=== PATIENT | female | born 1955 | race Caucasian/White ===

== ENCOUNTER 2018-06-11 13:33 | Emergency (ER) | payer MEDICARE, MEDICAID ==
[~2018-06-11] VITALS: Ht 157.5 cm; Wt 50.0 kg
[~2018-06-11 13:33] MED LIST: ASPI-1264 PO; BUSP5TAB3 PO; CEPH-357 PO; DEXL60CA3 PO; DULO-31 PO; GABA-338 PO; HYDR-4353 PO; HYDR-4383 PO; LISI-600 PO; LORA1TAB PO; META800T87 PO; METO-539 PO; NIA500ERT PO; NORCO10T PO; SIMV10TA2 PO; SOLI10TA6 PO
[2018-06-11 14:17] VITALS: BP 198/113
--- NOTE | 2018-06-11 14:35 | NUR ---
INTO ASSESS PT. PT NOTED TO HAVE BP OF 193/119 AND RECHECK 198/113. UPON QUESTIONING PT SHE STATES SHE HAS NOT TAKEN ANY OF HER MEDS FOR OVER [address] BORGES NOTIFIED NO ORDERS AT THIS TIME
== END 2018-06-11 15:34 | disposition home or self-care (01) ==
LOC: ER 13:35
DX: H54.7 Unspecified visual loss (principal); I10 Essential (primary) hypertension; E78.00 Pure hypercholesterolemia, unspecified; G89.29 Other chronic pain; F41.9 Anxiety disorder, unspecified; F32.9 Major depressive disorder, single episode, unspecified; M19.90 Unspecified osteoarthritis, unspecified site; F17.200 Nicotine dependence, unspecified, uncomplicated; Z88.5 Allergy status to narcotic agent; Z88.8 Allergy status to other drugs, medicaments and biological substances; Z79.899 Other long term (current) drug therapy; Z79.82 Long term (current) use of aspirin; Z86.73 Personal history of transient ischemic attack (TIA), and cerebral infarction without residual deficits; Z90.89 Acquired absence of other organs
CPT/HCPCS: 99281; 99283

== ENCOUNTER 2019-04-15 10:13 | Emergency (ER) | payer MEDICARE, MEDICAID ==
[~2019-04-15] VITALS: Ht 157.5 cm; Wt 50.3 kg
[2019-04-15 10:26] VITALS: BP 152/103
--- NOTE | 2019-04-15 10:46 | NUR ---
clarissae to dry blood areas on face, to view abrasions. Pt is tearful, reports no pmd and out of her [address] [facility]. Pt denies SI.
--- NOTE | 2019-04-15 10:46 | NUR ---
PT states that she has depression issues and is out of medication.
[2019-04-15] MEDS ORDERED: HYDROcodone/acetaminophen 5mg/325mg tablet PO ONE (11:20)
[2019-04-15] MEDS ORDERED: ondansetron 4mg rapidly disintigrating tab PO ONE (11:20)
--- NOTE | 2019-04-15 11:50 | NUR ---
IN CT NOW
--- NOTE | 2019-04-15 12:03 | NUR ---
BACK FROM CT
--- NOTE | 2019-04-15 12:30 | NUR ---
CALLED PT "" JEFF [phone], HE WILL COME AND GET HER
== END 2019-04-15 13:43 | disposition home or self-care (01) ==
LOC: ER 10:14
DX: S16.1XXA Strain of muscle, fascia and tendon at neck level, initial encounter (principal); S00.31XA Abrasion of nose, initial encounter; E78.00 Pure hypercholesterolemia, unspecified; I10 Essential (primary) hypertension; M19.90 Unspecified osteoarthritis, unspecified site; G89.29 Other chronic pain; F41.9 Anxiety disorder, unspecified; F32.9 Major depressive disorder, single episode, unspecified; Z86.73 Personal history of transient ischemic attack (TIA), and cerebral infarction without residual deficits; Z98.890 Other specified postprocedural states; Z88.5 Allergy status to narcotic agent; Z88.8 Allergy status to other drugs, medicaments and biological substances; Z79.82 Long term (current) use of aspirin; Z79.2 Long term (current) use of antibiotics; Z79.899 Other long term (current) drug therapy; W01.10XA Fall on same level from slipping, tripping and stumbling with subsequent striking against unspecified object, initial encounter; Y93.89 Activity, other specified; Y92.89 Other specified places as the place of occurrence of the external cause; Y99.8 Other external cause status
CPT/HCPCS: 70450; 72125; 99284

== ENCOUNTER 2019-05-04 09:40 | Emergency (ER) | payer MEDICARE, MEDICAID ==
[~2019-05-04] VITALS: Ht 157.5 cm; Wt 49.0 kg
[2019-05-04] MEDS ORDERED: LABETALOL IV PRN ×3 (10:25→10:33)
[2019-05-04] MEDS ORDERED: NORMAL SALINE IV PRN ×3 (10:25→10:33)
[2019-05-04 10:47] LABS: BASOPHILS # (AUTO) 0.1 X10'3 (0-0.2); BASOPHILS % (AUTO) 0.9 % (0-1); EOSINOPHILS # (AUTO) 0.3 X10'3 (0-0.9); EOSINOPHILS % (AUTO) 3.6 % (0-6); HEMATOCRIT 45.6 % (35.0-45.0); HEMOGLOBIN 15.7 g/dl (12.0-16.0); LYMPHOCYTES # (AUTO) 2.2 X10'3 (1.1-4.8); LYMPHOCYTES % (AUTO) 22.9 % (21-51); MEAN CORPUSCULAR HEMOGLOBIN 31.8 PG (27.0-31.0); MEAN CORPUSCULAR HGB CONC 34.4 g/dL (33.0-36.5); MEAN CORPUSCULAR VOLUME 92.5 FL (78-98); MONOCYTES # (AUTO) 0.9 X10'3 (0-0.9); MONOCYTES % (AUTO) 9.8 % (2-12); NEUTROPHILS # (AUTO) 5.9 X10'3 (1.8-7.7); NEUTROPHILS % (AUTO) 62.8 % (42-75); PLATELET COUNT 318 X10'3 (140-440); RED BLOOD COUNT 4.93 X10'6 (4.20-5.60); RED CELL DISTRIBUTION WIDTH 13.3 % (11.5-14.5); WHITE BLOOD COUNT 9.4 X10'3 (4.5-11.0)
[2019-05-04 11:00] LABS: PARTIAL THROMBOPLASTIN TIME 27 SECONDS (22-32)
[2019-05-04 11:23] LABS: ALANINE AMINOTRANSFERASE 47 U/L (12-78); ALBUMIN 3.7 G/DL (3.4-5.0); ALBUMIN/GLOBULIN RATIO 0.7 (1.1-1.5); ALKALINE PHOSPHATASE 91 IU/L (46-116); ANION GAP 7 (8-16); ASPARTATE AMINO TRANSFERASE 39 U/L (10-37); BILIRUBIN,TOTAL 0.6 MG/DL (0.1-1.0); BLOOD UREA NITROGEN 25 MG/DL (7-18); CALCIUM 9.7 MG/DL (8.5-10.1); CHLORIDE 98 MMOL/L (99-107); CREATININE 1.19 MG/DL (0.40-0.90); GLUCOSE 163 MG/DL (70-104); SODIUM 138 MMOL/L (135-145); TOTAL CARBON DIOXIDE 33.1 MMOL/L (24-32); TOTAL PROTEIN 8.8 G/DL (6.4-8.2); eGFR 46 ML/MIN
--- NOTE | 2019-05-04 11:24 | NUR ---
CAME IN TO THE ER BECAUSE SHE FELL LAST NIGHT AND CAME IN TO BE EVALUATED CT WAS DONE AND A BLEED WAS FOUND AND IS BEING SENT TO [facility] TO BE TREATED
[2019-05-04 11:27] LABS: POTASSIUM 2.9 MMOL/L (3.5-5.1)
--- NOTE | 2019-05-04 11:30 | NUR ---
EMS LEFT WITH PT REPORT WAS GIVEN ALL QUESTIONS ANSWERED
[2019-05-04 11:42] VITALS: BP 157/98
[2019-05-04 11:54] LABS: URINE AMPHETAMINE SCREEN POSITIVE (Neg); URINE BARBITUATE SCREEN NEGATIVE (Neg); URINE BENZODIAZEPINES SCREEN NEGATIVE (Neg); URINE CANNABINOID SCREEN POSITIVE (Neg); URINE COCAINE SCREEN NEGATIVE (Neg); URINE METHADONE SCREEN NEGATIVE (Neg); URINE OPIATE SCREEN NEGATIVE (Neg); URINE PHENCYCLIDINE SCREEN NEGATIVE (Neg)
== END 2019-05-04 11:46 | disposition short-term general hospital (02) ==
LOC: ER 09:40
DX: I62.9 Nontraumatic intracranial hemorrhage, unspecified (principal); I10 Essential (primary) hypertension; I25.10 Atherosclerotic heart disease of native coronary artery without angina pectoris; E78.00 Pure hypercholesterolemia, unspecified; K21.9 Gastro-esophageal reflux disease without esophagitis; M19.90 Unspecified osteoarthritis, unspecified site; G89.29 Other chronic pain; F17.200 Nicotine dependence, unspecified, uncomplicated; F12.90 Cannabis use, unspecified, uncomplicated; Z86.73 Personal history of transient ischemic attack (TIA), and cerebral infarction without residual deficits; Z98.890 Other specified postprocedural states; Z90.89 Acquired absence of other organs; Z88.5 Allergy status to narcotic agent; Z79.82 Long term (current) use of aspirin; Z79.899 Other long term (current) drug therapy
CPT/HCPCS: 36415; 70450; 71045; 80053; 80305; 83880; 84484; 85025; 85610; 85730; 93005; 96365; 99291; J3490; J7050

== ENCOUNTER 2020-07-19 19:07 | Emergency (ER) | payer MEDICARE, MEDICAID ==
[~2020-07-19] VITALS: Ht 157.5 cm; Wt 52.3 kg
[2020-07-19] MEDS ORDERED: AZIT250T2 PO (19:50)
[2020-07-19] MEDS ORDERED: ALBU6.7H9 INH (19:50)
[2020-07-19] MEDS ORDERED: PRED10TA23 PO (19:50)
== END 2020-07-19 20:09 | disposition home or self-care (01) ==
LOC: ER 19:07
DX: R06.2 Wheezing (principal); J44.9 Chronic obstructive pulmonary disease, unspecified; R05 Cough; R50.9 Fever, unspecified; R06.02 Shortness of breath; Z20.822 Contact with and (suspected) exposure to COVID-19; I25.10 Atherosclerotic heart disease of native coronary artery without angina pectoris; E78.00 Pure hypercholesterolemia, unspecified; I10 Essential (primary) hypertension; K21.9 Gastro-esophageal reflux disease without esophagitis; M19.90 Unspecified osteoarthritis, unspecified site; G89.29 Other chronic pain; F41.9 Anxiety disorder, unspecified; F32.9 Major depressive disorder, single episode, unspecified; F12.90 Cannabis use, unspecified, uncomplicated; Z86.73 Personal history of transient ischemic attack (TIA), and cerebral infarction without residual deficits; Z87.440 Personal history of urinary (tract) infections; Z98.890 Other specified postprocedural states; Z90.89 Acquired absence of other organs; Z88.5 Allergy status to narcotic agent; Z88.8 Allergy status to other drugs, medicaments and biological substances; Z79.82 Long term (current) use of aspirin; Z79.2 Long term (current) use of antibiotics; Z79.899 Other long term (current) drug therapy
CPT/HCPCS: 36415; 87635; 99283

== ENCOUNTER 2021-10-07 23:45 | Emergency (ER) | payer MEDICARE, MEDICAID ==
[~2021-10-07] VITALS: Ht 157.5 cm; Wt 52.7 kg
[~2021-10-07 23:45] MED LIST changes: +ALBU6.7H9 INH; -LISI-600 PO; +LISI20TA28 PO
[2021-10-08 00:01] VITALS: BP 156/100
[2021-10-08] MEDS ORDERED: NAPR-56 PO (03:46)
== END 2021-10-08 04:14 | disposition home or self-care (01) ==
LOC: ER 23:46
DX: S03.03XA Dislocation of jaw, bilateral, initial encounter (principal); I25.10 Atherosclerotic heart disease of native coronary artery without angina pectoris; E78.00 Pure hypercholesterolemia, unspecified; I10 Essential (primary) hypertension; K21.9 Gastro-esophageal reflux disease without esophagitis; M19.90 Unspecified osteoarthritis, unspecified site; F12.90 Cannabis use, unspecified, uncomplicated; Z87.440 Personal history of urinary (tract) infections; Z86.73 Personal history of transient ischemic attack (TIA), and cerebral infarction without residual deficits; Z98.891 History of uterine scar from previous surgery; Z90.89 Acquired absence of other organs; Z88.8 Allergy status to other drugs, medicaments and biological substances; Z79.82 Long term (current) use of aspirin; Z79.2 Long term (current) use of antibiotics; Z79.899 Other long term (current) drug therapy; X58.XXXA Exposure to other specified factors, initial encounter; Y93.89 Activity, other specified; Y92.89 Other specified places as the place of occurrence of the external cause; Y99.8 Other external cause status
CPT/HCPCS: 70486; 99284

== ENCOUNTER 2021-11-12 19:56 | Emergency (ER) | payer MEDICARE, MEDICAID ==
[~2021-11-12] VITALS: Ht 157.5 cm; Wt 115.0 kg
[2021-11-12 20:05] VITALS: BP 184/118
[2021-11-12 20:59] LABS: CLARITY,URINE SLIGHTLY CLOUDY (Clear); COLOR,URINE YELLOW (Yellow); GLUCOSE, URINE NEGATIVE (Neg); KETONES,URINE NEGATIVE (Neg); LEUKOCYTE ESTERASE ,URINE NEGATIVE (Neg); NITRITES, URINE NEGATIVE (Neg); OCCULT BLOOD,URINE TRACE-INTACT (Neg); PROTEIN,URINE >=300 mg/dl (Neg); UROBILINOGEN,URINE 0.2 E.U/dL (0.2-1.0)
[2021-11-12 21:12] LABS: UA COLLECTION TYPE CLN CATCH MIDSTREAM
[2021-11-12 21:15] LABS: BACTERIA,URINE 4+ /HPF (Neg); MUCUS STRANDS NONE SEEN /LPF (Neg); RBC,URINE 0-2 /HPF (0-2); SQUAMOUS EPITHELIAL CELL,UR FEW /LPF (FEW)
[2021-11-12 21:16] LABS: WBC CLUMPS,URINE FEW /HPF (NEGATIVE)
[2021-11-12] MEDS ORDERED: cephalexin 250mg capsule PO ONE (21:50)
[2021-11-12] MEDS ORDERED: CEPH500C2 PO (22:18)
== END 2021-11-12 22:39 | disposition home or self-care (01) ==
LOC: ER 19:57
DX: N39.0 Urinary tract infection, site not specified (principal); R11.0 Nausea; N30.90 Cystitis, unspecified without hematuria; I25.10 Atherosclerotic heart disease of native coronary artery without angina pectoris; E78.00 Pure hypercholesterolemia, unspecified; I10 Essential (primary) hypertension; K21.9 Gastro-esophageal reflux disease without esophagitis; M19.90 Unspecified osteoarthritis, unspecified site; G89.29 Other chronic pain; F41.9 Anxiety disorder, unspecified; F32.A Depression, unspecified; F12.90 Cannabis use, unspecified, uncomplicated; Z86.73 Personal history of transient ischemic attack (TIA), and cerebral infarction without residual deficits; Z87.440 Personal history of urinary (tract) infections; Z90.89 Acquired absence of other organs; Z98.890 Other specified postprocedural states; Z88.5 Allergy status to narcotic agent; Z88.8 Allergy status to other drugs, medicaments and biological substances; Z79.82 Long term (current) use of aspirin; Z79.2 Long term (current) use of antibiotics; Z79.899 Other long term (current) drug therapy
CPT/HCPCS: 81001; 87077; 87088; 87186; 99283

== ENCOUNTER 2022-01-05 00:35 | Inpatient (IN) | payer MEDICARE, MEDICAID ==
[~2022-01-05] VITALS: Ht 152.4 cm; Wt 50.0 kg
[2022-01-05] MEDS ORDERED: METO-539 PO ×2 (01:47)
[2022-01-05] MEDS ORDERED: LISI20TA28 PO ×4 (01:47→02:29)
[2022-01-05] MEDS ORDERED: metoprolol succinate 25mg (24-HOUR) SR. Tablet PO ONE (01:50)
[2022-01-05] MEDS ORDERED: metoprolol succinate 25mg (24-HOUR) SR. Tablet PO SCH (01:50)
[2022-01-05] MEDS ORDERED: lisinopril 10 MG tablet PO ONE (01:50)
[2022-01-05] MEDS ORDERED: magnesium oxide 400mg tablet PO ONE (02:40)
[2022-01-05 03:30] LABS: BASOPHILS # (AUTO) 0.1 X10'3 (0-0.2); EOSINOPHILS # (AUTO) 0.2 X10'3 (0-0.9); EOSINOPHILS % (AUTO) 2.9 % (0-6); HEMATOCRIT 38.5 % (35.0-45.0); HEMOGLOBIN 13.1 g/dl (12.0-16.0); LYMPHOCYTES # (AUTO) 2.5 X10'3 (1.1-4.8); MEAN CORPUSCULAR HEMOGLOBIN 31.6 PG (27.0-31.0); MEAN CORPUSCULAR VOLUME 92.8 FL (78-98); MEAN PLATELET VOLUME 9.8 FL (7.4-10.4); MONOCYTES % (AUTO) 12.4 % (2-12); NEUTROPHILS # (AUTO) 4.2 X10'3 (1.8-7.7); NEUTROPHILS % (AUTO) 52.7 % (42-75); PLATELET COUNT 232 X10'3 (140-440); RED BLOOD COUNT 4.15 X10'6 (4.20-5.60); RED CELL DISTRIBUTION WIDTH 13.4 % (11.5-14.5)
[2022-01-05 03:53] LABS: ALANINE AMINOTRANSFERASE 36 U/L (12-78); ALBUMIN 2.8 G/DL (3.4-5.0); ALBUMIN/GLOBULIN RATIO 0.7 (1.1-1.5); ALKALINE PHOSPHATASE 62 IU/L (46-116); ANION GAP 6 (8-16); ASPARTATE AMINO TRANSFERASE 35 U/L (10-37); BILIRUBIN,TOTAL 0.7 MG/DL (0.1-1.0); BLOOD UREA NITROGEN 28 MG/DL (7-18); BUN/CREATININE RATIO 17.4 (6.6-38.0); CALCIUM 8.8 MG/DL (8.5-10.1); CHLORIDE 103 MMOL/L (99-107); CREATININE 1.61 MG/DL (0.40-0.90); ETHANOL < 0.010 GM/DL (0.0-0.010); GLUCOSE 115 MG/DL (70-104); LIPASE 141 U/L (73-393); SODIUM 140 MMOL/L (135-145); TOTAL CARBON DIOXIDE 31.2 MMOL/L (24-32); TOTAL PROTEIN 6.6 G/DL (6.4-8.2); eGFR 32 ML/MIN
[2022-01-05 04:17] LABS: CLARITY,URINE CLEAR (Clear); COLOR,URINE YELLOW (Yellow); GLUCOSE, URINE NEGATIVE (Neg); KETONES,URINE NEGATIVE (Neg); LEUKOCYTE ESTERASE ,URINE NEGATIVE (Neg); NITRITES, URINE NEGATIVE (Neg); OCCULT BLOOD,URINE NEGATIVE (Neg); PROTEIN,URINE 30 mg/dl (Neg); UROBILINOGEN,URINE 0.2 E.U/dL (0.2-1.0)
[2022-01-05 04:34] LABS: UA COLLECTION TYPE CLN CATCH MIDSTREAM
[2022-01-05 04:35] LABS: BACTERIA,URINE FEW /HPF (Neg); RBC,URINE 0-2 /HPF (0-2); SQUAMOUS EPITHELIAL CELL,UR FEW /LPF (FEW); WBC,URINE NONE SEEN /HPF (0-4)
[2022-01-05 04:40] LABS: POTASSIUM 2.5 MMOL/L (3.5-5.1)
[2022-01-05 04:40] LABS: URINE AMPHETAMINE SCREEN NEGATIVE (Neg); URINE BARBITUATE SCREEN NEGATIVE (Neg); URINE BENZODIAZEPINES SCREEN NEGATIVE (Neg); URINE COCAINE SCREEN NEGATIVE (Neg); URINE METHADONE SCREEN NEGATIVE (Neg); URINE OPIATE SCREEN NEGATIVE (Neg); URINE PHENCYCLIDINE SCREEN NEGATIVE (Neg)
[2022-01-05] MEDS ORDERED: potassium CL 10mEq/100ml bag 100 ML IV ONE ×2 (04:55)
[2022-01-05] MEDS ORDERED: normal saline 1000ML IV soln IVB ONE (04:55)
[2022-01-05 05:40] LABS: URINE CANNABINOID SCREEN POSITIVE (Neg)
[2022-01-05] MEDS ORDERED: ondansetron 4mg rapidly disintigrating tab PO PRN (05:45)
[2022-01-05] MEDS ORDERED: diphenhydrAMINE 25mg capsule PO PRN (05:45)
[2022-01-05] MEDS ORDERED: diphenhydrAMINE 50 mg/ml inj IV PRN (05:45)
[2022-01-05] MEDS ORDERED: magnesium 4gm in 100ml NS 100 ML IV PRN ×2 (05:45→05:50)
[2022-01-05] MEDS ORDERED: mag hydrox/Alum hydrox/simeth 30ml oral suspension PO PRN ×2 (05:45→05:50)
[2022-01-05] MEDS ORDERED: magnesium hydroxide 30ml (MOM) UD suspension PO PRN ×2 (05:45→05:50)
[2022-01-05] MEDS ORDERED: acetaminophen 650mg rectal suppository RC PRN (05:45)
[2022-01-05] MEDS ORDERED: acetaminophen 325mg tablet PO PRN ×3 (05:45→05:50)
[2022-01-05] MEDS ORDERED: ondansetron/PF 4mg/2ml inj IV PRN ×2 (05:45→05:50)
[2022-01-05] MEDS ORDERED: magnesium Cl slow-release 64mg tablet PO PRN ×2 (05:45→05:50)
[2022-01-05] MEDS ORDERED: bisacodyl 10mg suppository rectal RC PRN (05:45)
[2022-01-05] MEDS ORDERED: HYDROmorphone inj. 0.5 MG/0.5 ML DISP.SYRIN IV PRN (05:45)
[2022-01-05] MEDS ORDERED: morphine 2 MG/ML inj. syringe IV PRN ×2 (05:45)
[2022-01-05] MEDS ORDERED: HYDROcodone/acetaminophen 5mg/325mg tablet PO PRN (05:45)
[2022-01-05] MEDS ORDERED: POTASSIUM BICARB 20meq eff tab 20 MEQ TABLET.EFF PO PRN ×3 (05:45→05:50)
[2022-01-05] MEDS ORDERED: magnesium 2GM in 50ml NS 50 ML IV PRN ×2 (05:45→05:50)
[2022-01-05] MEDS ORDERED: HYDROcodone/acetaminophen 10/325mg tab PO PRN (05:45)
[2022-01-05] MEDS ORDERED: potassium CL 10mEq/100ml bag 100 ML IV PRN (05:50)
[2022-01-05] MEDS ORDERED: niCARDipine-NS 40mg/200ml IVPB 200 ML IV SCH (06:00)
--- NOTE | 2022-01-05 06:04 | NUR ---
PT TO CT
[2022-01-05] MEDS: normal saline 1000ml 1,000 ML IV SCH (07:03)
[2022-01-05 07:28] LABS: PHOSPHORUS 4.1 MG/DL (2.3-4.5)
[2022-01-05] MEDS ORDERED: K and/or MAG REPLACEMENT MC SCH (08:00)
[2022-01-05] MEDS ORDERED: docusate sod 100mg capsule PO SCH (08:00)
[2022-01-05] MEDS: docusate sod 100mg capsule PO SCH ×2 (08:00→20:32)
[2022-01-05] MEDS: K and/or MAG REPLACEMENT MC SCH ×2 (08:00→22:00)
[2022-01-05 08:50] LABS: APTT 25 SECONDS (22-32)
[2022-01-05] MEDS: heparin, porcine 5000 units/ml vial SQ SCH ×2 (09:00→20:32)
[2022-01-05] MEDS ORDERED: PERFLUTREN PROTEIN-A MICROSPHR (Optison) 0.22 MG/ML 3ML VIAL IV ONE (10:40)
[2022-01-05] MEDS: potassium CL 10mEq/100ml bag 100 ML IV PRN ×3 (11:14→14:51)
[2022-01-05] MEDS: amLODIPine 5mg tablet PO SCH (11:15)
[2022-01-05] MEDS ORDERED: NO HOME MEDS (11:43)
--- NOTE | 2022-01-05 14:22 | NUR ---
Report given to ANY Velasquez will be coming down to pick pt up to go to short stay
--- NOTE | 2022-01-05 14:35 | NUR ---
Received report from Olive AGARWAL. Picked up patient from ED and transferred to room 40A for ED Hold. Patient A&O but is a big forgetful. She is very drowsy but arousable to verbal.
[2022-01-05 14:40] VITALS: BP 111/69
--- NOTE | 2022-01-05 15:35 | NUR ---
Patient to MRI
--- NOTE | 2022-01-05 15:55 | NUR ---
Called in report to Eugenia AGARWAL on PCU. Patient going to room 3026B. Notified MRI to bring patient right up to 3026B. Brought all patient's belongings and IV fluids up to room.
[2022-01-05 17:01] VITALS: BP 129/78
--- NOTE | 2022-01-05 17:24 | NUR ---
Pt states that [place] but not with her ex-. She lives alone. She smokes about 5 ciggs/day and smokes marijuana occasionally. Both her parents are and did not have any health issues per pt.
[2022-01-05 18:00] VITALS: BP 174/98
[2022-01-05] MEDS ORDERED: temazepam 15mg capsule PO PRN (21:00)
[2022-01-05 22:00] VITALS: BP 137/81
[2022-01-06 02:00] VITALS: BP 149/88
--- NOTE | 2022-01-06 06:45 | NUR ---
pt is refusing VS and lab draw - will attempt later.
[2022-01-06] MEDS: docusate sod 100mg capsule PO SCH ×2 (08:00→20:01)
[2022-01-06] MEDS: K and/or MAG REPLACEMENT MC SCH ×2 (08:00→20:11)
[2022-01-06] MEDS: heparin, porcine 5000 units/ml vial SQ SCH ×2 (08:00→20:04)
--- NOTE | 2022-01-06 08:07 | NUR ---
Pt is refusing all care and touch. She will not open her eyes but states "will you leave me alone" and moves her arms and head. Will attempt to speak with her later. Bed alarm is on and audible.
--- NOTE | 2022-01-06 10:17 | NUR ---
Malnutrition consult: Pt reports 2-13 lb wt loss with decreased appetite per malnutrition risk screen with RN. Per EMR pt A/O x 3 with ALOC on admit. Most recent scaled wt hx is 115 kg taken 11/12, though wt in lbs likely documented in kg resulting in actual wt of 52.27 kg as pt with documented wts of 52.73 kg 10/08 and 52.27 kg 07/19/20 per EMR. Current documented wt is 50 kg though no documentation of how wt was obtained, however wt does appear to be stable overall. Pt s/p BSS with ST recs MM5 food with thin liquids and pt eating well, documented with 100% PO intake first meal. Pt with no documented significant decrease in muscle strength or edema. Per physician notes pt appears well developed well nourished. Pt currently lacks a minimum of two criteria for malnutrition at this time. Of note pt documented as 62" at previous admits, current documented ht of 60" likely not accurate. Will continue to follow. Addendum: 01/06/22 at [address] Amended: Links added.
--- NOTE | 2022-01-06 10:46 | NUR ---
PT refusing all care multiple attempts by multiple nursing staff, PT. Refuses all treatment.
--- NOTE | 2022-01-06 10:49 | NUR ---
Transaction number: [id number] Message: [id number]. hSarlene Lopez. Refusing ALL tx. FYI. Bello [phone]
[2022-01-06 11:00] VITALS: BP 137/86
[2022-01-06] MEDS: amLODIPine 5mg tablet PO SCH (11:02)
--- NOTE | 2022-01-06 11:08 | NUR ---
Pt is more awake and aware. She is oriented to self only. Easily re-directed/re-oriented. She took her BP med after she allowed me to take her VS. She is also allowing lab to come up now. Called lab to come up STAT. Will continue to monitor.
[2022-01-06 12:12] LABS: BASOPHILS # (AUTO) 0.1 X10'3 (0-0.2); BASOPHILS % (AUTO) 1.1 % (0-1); EOSINOPHILS # (AUTO) 0.1 X10'3 (0-0.9); EOSINOPHILS % (AUTO) 2.8 % (0-6); HEMATOCRIT 41.1 % (35.0-45.0); HEMOGLOBIN 13.8 g/dl (12.0-16.0); LYMPHOCYTES # (AUTO) 1.6 X10'3 (1.1-4.8); LYMPHOCYTES % (AUTO) 30.2 % (21-51); MEAN CORPUSCULAR HEMOGLOBIN 32.1 PG (27.0-31.0); MEAN CORPUSCULAR HGB CONC 33.6 g/dL (33.0-36.5); MEAN CORPUSCULAR VOLUME 95.6 FL (78-98); MEAN PLATELET VOLUME 9.9 FL (7.4-10.4); MONOCYTES # (AUTO) 0.4 X10'3 (0-0.9); MONOCYTES % (AUTO) 7.3 % (2-12); NEUTROPHILS # (AUTO) 3.1 X10'3 (1.8-7.7); NEUTROPHILS % (AUTO) 58.6 % (42-75); PLATELET COUNT 234 X10'3 (140-440); RED CELL DISTRIBUTION WIDTH 13.7 % (11.5-14.5); WHITE BLOOD COUNT 5.3 X10'3 (4.5-11.0)
[2022-01-06 12:26] LABS: ALANINE AMINOTRANSFERASE 41 U/L (12-78); ALBUMIN 2.8 G/DL (3.4-5.0); ALBUMIN/GLOBULIN RATIO 0.7 (1.1-1.5); ALKALINE PHOSPHATASE 59 IU/L (46-116); ANION GAP 6 (8-16); ASPARTATE AMINO TRANSFERASE 45 U/L (10-37); BILIRUBIN,TOTAL 0.5 MG/DL (0.1-1.0); BLOOD UREA NITROGEN 28 MG/DL (7-18); BUN/CREATININE RATIO 18.1 (6.6-38.0); CALCIUM 8.7 MG/DL (8.5-10.1); CHLORIDE 107 MMOL/L (99-107); CHOL/HDL RATIO 3.8 (0.00-4.99); CHOLESTEROL 206 MG/DL (0-200); CREATININE 1.55 MG/DL (0.40-0.90); GLUCOSE 136 MG/DL (70-104); HDL CHOLESTEROL 54 MG/DL (35-60); LDL CHOLESTEROL 115 MG/DL (50-100); MAGNESIUM 2.1 MG/DL (1.5-2.4); PHOSPHORUS 2.5 MG/DL (2.3-4.5); POTASSIUM 3.2 MMOL/L (3.5-5.1); SODIUM 143 MMOL/L (135-145); TOTAL CARBON DIOXIDE 29.8 MMOL/L (24-32); TOTAL PROTEIN 6.9 G/DL (6.4-8.2); TRIGLYCERIDES 151 MG/DL (20-135); eGFR 34 ML/MIN
[2022-01-06] MEDS: POTASSIUM BICARB 20meq eff tab 20 MEQ TABLET.EFF PO PRN ×2 (12:43→20:10)
--- NOTE | 2022-01-06 12:50 | NUR ---
Neurotele consult request Success A new connect request was successfully created for: LopezOliviera : 1955 ConnectID: [id number] REASON: Abnormal Imaging ACUITY: Acuity Level 4 SUBMITTED: 01/06/2022 12:50 PDT
[2022-01-06 15:00] VITALS: BP 121/74
[2022-01-06 18:00] VITALS: BP 131/79
[2022-01-06] MEDS ORDERED: aspirin 325mg tablet PO ONE (22:30)
[2022-01-06] MEDS: atorvastatin 20mg tablet PO SCH (22:30)
[2022-01-07 02:00] VITALS: BP 143/97
[2022-01-07] MEDS ORDERED: aspirin 325mg tablet PO ONE (03:45)
[2022-01-07] MEDS: POTASSIUM BICARB 20meq eff tab 20 MEQ TABLET.EFF PO PRN (04:01)
[2022-01-07] MEDS: normal saline 1000ml 1,000 ML IV SCH (05:45)
[2022-01-07 06:00] VITALS: BP 164/102
--- NOTE | 2022-01-07 06:45 | NUR ---
Patient in room PCU 3028M. I have received report from ANY CHEUNG and had the opportunity to ask questions and assume patient care.
[2022-01-07] MEDS: docusate sod 100mg capsule PO SCH ×2 (08:00→20:56)
[2022-01-07] MEDS: K and/or MAG REPLACEMENT MC SCH ×2 (08:00→20:00)
[2022-01-07] MEDS: heparin, porcine 5000 units/ml vial SQ SCH ×2 (08:00→20:58)
[2022-01-07 08:35] LABS: BASOPHILS # (AUTO) 0.1 X10'3 (0-0.2); EOSINOPHILS # (AUTO) 0.2 X10'3 (0-0.9); EOSINOPHILS % (AUTO) 3.9 % (0-6); HEMATOCRIT 39.2 % (35.0-45.0); HEMOGLOBIN 13.3 g/dl (12.0-16.0); LYMPHOCYTES # (AUTO) 2.3 X10'3 (1.1-4.8); LYMPHOCYTES % (AUTO) 36.5 % (21-51); MEAN CORPUSCULAR HGB CONC 33.8 g/dL (33.0-36.5); MEAN CORPUSCULAR VOLUME 94.7 FL (78-98); MEAN PLATELET VOLUME 10.9 FL (7.4-10.4); MONOCYTES # (AUTO) 0.6 X10'3 (0-0.9); MONOCYTES % (AUTO) 9.2 % (2-12); NEUTROPHILS # (AUTO) 3.1 X10'3 (1.8-7.7); NEUTROPHILS % (AUTO) 49.4 % (42-75); PLATELET COUNT 223 X10'3 (140-440); RED BLOOD COUNT 4.14 X10'6 (4.20-5.60); RED CELL DISTRIBUTION WIDTH 13.7 % (11.5-14.5); WHITE BLOOD COUNT 6.4 X10'3 (4.5-11.0)
[2022-01-07 08:50] LABS: ALANINE AMINOTRANSFERASE 41 U/L (12-78); ALBUMIN 2.5 G/DL (3.4-5.0); ALBUMIN/GLOBULIN RATIO 0.6 (1.1-1.5); ALKALINE PHOSPHATASE 51 IU/L (46-116); ANION GAP 6 (8-16); ASPARTATE AMINO TRANSFERASE 47 U/L (10-37); BILIRUBIN,TOTAL 0.4 MG/DL (0.1-1.0); BLOOD UREA NITROGEN 24 MG/DL (7-18); BUN/CREATININE RATIO 17.3 (6.6-38.0); CALCIUM 8.5 MG/DL (8.5-10.1); CHLORIDE 108 MMOL/L (99-107); CREATININE 1.39 MG/DL (0.40-0.90); GLUCOSE 97 MG/DL (70-104); MAGNESIUM 1.9 MG/DL (1.5-2.4); PHOSPHORUS 2.4 MG/DL (2.3-4.5); POTASSIUM 4.2 MMOL/L (3.5-5.1); SODIUM 144 MMOL/L (135-145); TOTAL CARBON DIOXIDE 29.8 MMOL/L (24-32); TOTAL PROTEIN 6.4 G/DL (6.4-8.2); eGFR 38 ML/MIN
--- NOTE | 2022-01-07 10:19 | NUR ---
PATIENT WANTING TO LEAVE, SHE IS WOBBLY WHILE WALKING AND HOLDS ON TO THE [employer] AND RAILS FOR STABILITY. PATIENT REFUSING MEDS AND PHYSICAL ASSESSMENT. DR WILSON AWAITING CALL BACK OR TO SEE HIM DURING ROUNDS
[2022-01-07 12:35] VITALS: BP 174/90
[2022-01-07] MEDS: amLODIPine 5mg tablet PO SCH (12:40)
[2022-01-07] MEDS: atorvastatin 20mg tablet PO SCH (12:40)
[2022-01-07] MEDS: aspirin 325mg tablet PO SCH (12:41)
[2022-01-07 15:00] VITALS: BP 131/87
[2022-01-07 18:00] VITALS: BP 156/99
--- NOTE | 2022-01-07 18:33 | NUR ---
Problems reprioritized. Patient report given, questions answered & plan of care reviewed with ANY GAONA.
[2022-01-08 02:00] VITALS: BP 154/85
[2022-01-08 06:36] LABS: BASOPHILS # (AUTO) 0.1 X10'3 (0-0.2); BASOPHILS % (AUTO) 1.1 % (0-1); EOSINOPHILS # (AUTO) 0.3 X10'3 (0-0.9); EOSINOPHILS % (AUTO) 4.6 % (0-6); HEMATOCRIT 39.3 % (35.0-45.0); HEMOGLOBIN 13.5 g/dl (12.0-16.0); LYMPHOCYTES # (AUTO) 2.4 X10'3 (1.1-4.8); LYMPHOCYTES % (AUTO) 36.4 % (21-51); MEAN CORPUSCULAR HEMOGLOBIN 32.5 PG (27.0-31.0); MEAN CORPUSCULAR HGB CONC 34.4 g/dL (33.0-36.5); MEAN CORPUSCULAR VOLUME 94.4 FL (78-98); MEAN PLATELET VOLUME 10.5 FL (7.4-10.4); MONOCYTES # (AUTO) 0.6 X10'3 (0-0.9); MONOCYTES % (AUTO) 9.8 % (2-12); NEUTROPHILS # (AUTO) 3.2 X10'3 (1.8-7.7); NEUTROPHILS % (AUTO) 48.1 % (42-75); PLATELET COUNT 236 X10'3 (140-440); RED BLOOD COUNT 4.16 X10'6 (4.20-5.60); RED CELL DISTRIBUTION WIDTH 13.6 % (11.5-14.5); WHITE BLOOD COUNT 6.6 X10'3 (4.5-11.0)
[2022-01-08 06:52] LABS: ALANINE AMINOTRANSFERASE 43 U/L (12-78); ALBUMIN 2.5 G/DL (3.4-5.0); ALBUMIN/GLOBULIN RATIO 0.6 (1.1-1.5); ALKALINE PHOSPHATASE 50 IU/L (46-116); ANION GAP 10 (8-16); ASPARTATE AMINO TRANSFERASE 47 U/L (10-37); BILIRUBIN,TOTAL 0.4 MG/DL (0.1-1.0); BLOOD UREA NITROGEN 26 MG/DL (7-18); BUN/CREATININE RATIO 17.2 (6.6-38.0); CALCIUM 8.7 MG/DL (8.5-10.1); CHLORIDE 107 MMOL/L (99-107); CREATININE 1.51 MG/DL (0.40-0.90); GLUCOSE 94 MG/DL (70-104); MAGNESIUM 1.9 MG/DL (1.5-2.4); PHOSPHORUS 3.4 MG/DL (2.3-4.5); POTASSIUM 3.8 MMOL/L (3.5-5.1); SODIUM 144 MMOL/L (135-145); TOTAL CARBON DIOXIDE 27.5 MMOL/L (24-32); TOTAL PROTEIN 6.6 G/DL (6.4-8.2); eGFR 35 ML/MIN
[2022-01-08] MEDS: K and/or MAG REPLACEMENT MC SCH ×2 (08:00→20:00)
--- NOTE | 2022-01-08 08:40 | NUR ---
report given to Bhavin
[2022-01-08] MEDS: docusate sod 100mg capsule PO SCH ×2 (09:16→20:00)
[2022-01-08] MEDS: aspirin 325mg tablet PO SCH (09:16)
[2022-01-08] MEDS: atorvastatin 20mg tablet PO SCH (09:16)
[2022-01-08] MEDS: amLODIPine 5mg tablet PO SCH (09:16)
[2022-01-08] MEDS: heparin, porcine 5000 units/ml vial SQ SCH ×2 (09:17→20:00)
[2022-01-08 11:00] VITALS: BP 139/88
[2022-01-08 15:00] VITALS: BP 110/67
--- NOTE | 2022-01-08 17:54 | NUR ---
SOCIAL WORK FOR DISCHARGE
[2022-01-08 18:00] VITALS: BP 156/88
--- NOTE | 2022-01-09 01:45 | NUR ---
pt became uncooperative and agitated.took off her tele wires and pulled off her iv line, causing her to bleed from the iv site.She also refused every HS medication.MD Coronado was notified. He gave new order for valium 10mg im once and valium iv 5mg 4hrly prn for agitation
[2022-01-09] MEDS ORDERED: diazepam inj 5 MG/ML inj. IM ONE (02:25)
[2022-01-09] MEDS ORDERED: diazepam inj 5 MG/ML inj. IV PRN (02:30)
[2022-01-09] MEDS: normal saline 1000ml 1,000 ML IV SCH (05:45)
[2022-01-09] MEDS: docusate sod 100mg capsule PO SCH ×2 (08:00→20:00)
[2022-01-09] MEDS: heparin, porcine 5000 units/ml vial SQ SCH ×2 (08:00→20:00)
[2022-01-09] MEDS: amLODIPine 5mg tablet PO SCH (08:00)
[2022-01-09] MEDS: K and/or MAG REPLACEMENT MC SCH ×2 (08:00→20:00)
[2022-01-09] MEDS: atorvastatin 20mg tablet PO SCH (08:00)
[2022-01-09] MEDS: aspirin 325mg tablet PO SCH (08:30)
--- NOTE | 2022-01-09 09:37 | NUR ---
PATIENT IS CONFUSED OF WHERE SHE IS AND SITUATION, STATES HER NAME IS "ESTEPHANIE" AND REFUSES TO TELL ME WHY SHE THINKS HERE. WHEN I ASK HER QUESTIONS A FREQUENT RESPONSE IS " YEAH I KNOW THAT ANSWER, WHY DO YOU WANT TO KNOW" SHE WILL NOT ALLOW ME TO PUT A TAB ALARM ON HER IS LAYING IN A BED IN HER ROOM AND VERY UNCOOPERTIVE NAN AGRESSIVE. SHE REFUSED ALL OF HER MEDS WELL. HER COGNITION AND DEMEANOR IS MARKEDLY DIFF FORM YESTERDAY.
--- NOTE | 2022-01-09 11:30 | NUR ---
PATIENT REFUSING ALL CARE, GETTING EXTREMELY AGITATED AND AGGRESSIVE WITH ATTEMPT. REFUSED VITAL SIGNS. MD AWARE
--- NOTE | 2022-01-09 15:43 | NUR ---
Message: RE ALEXANDER CASAREZ RM [id number] CAN WE DC TELE?
--- NOTE | 2022-01-09 19:08 | NUR ---
pt refused 18.00 vital signs.Every education given on the importance of vital signs was to no avail.
[2022-01-10 06:39] LABS: BASOPHILS # (AUTO) 0.1 X10'3 (0-0.2); BASOPHILS % (AUTO) 1.8 % (0-1); EOSINOPHILS # (AUTO) 0.3 X10'3 (0-0.9); EOSINOPHILS % (AUTO) 4.3 % (0-6); HEMATOCRIT 37.4 % (35.0-45.0); HEMOGLOBIN 12.9 g/dl (12.0-16.0); LYMPHOCYTES # (AUTO) 2.4 X10'3 (1.1-4.8); LYMPHOCYTES % (AUTO) 39.2 % (21-51); MEAN CORPUSCULAR HEMOGLOBIN 32.6 PG (27.0-31.0); MEAN CORPUSCULAR HGB CONC 34.4 g/dL (33.0-36.5); MEAN CORPUSCULAR VOLUME 94.9 FL (78-98); MEAN PLATELET VOLUME 10.1 FL (7.4-10.4); MONOCYTES # (AUTO) 0.6 X10'3 (0-0.9); MONOCYTES % (AUTO) 9.8 % (2-12); NEUTROPHILS # (AUTO) 2.8 X10'3 (1.8-7.7); NEUTROPHILS % (AUTO) 44.9 % (42-75); PLATELET COUNT 249 X10'3 (140-440); RED BLOOD COUNT 3.94 X10'6 (4.20-5.60); RED CELL DISTRIBUTION WIDTH 13.6 % (11.5-14.5); WHITE BLOOD COUNT 6.2 X10'3 (4.5-11.0)
[2022-01-10 07:01] LABS: ALANINE AMINOTRANSFERASE 40 U/L (12-78); ALBUMIN 2.5 G/DL (3.4-5.0); ALBUMIN/GLOBULIN RATIO 0.6 (1.1-1.5); ALKALINE PHOSPHATASE 49 IU/L (46-116); ANION GAP 8 (8-16); ASPARTATE AMINO TRANSFERASE 44 U/L (10-37); BILIRUBIN,TOTAL 0.4 MG/DL (0.1-1.0); BLOOD UREA NITROGEN 27 MG/DL (7-18); BUN/CREATININE RATIO 17.8 (6.6-38.0); CALCIUM 8.7 MG/DL (8.5-10.1); CHLORIDE 108 MMOL/L (99-107); CREATININE 1.52 MG/DL (0.40-0.90); GLUCOSE 92 MG/DL (70-104); PHOSPHORUS 3.7 MG/DL (2.3-4.5); POTASSIUM 3.8 MMOL/L (3.5-5.1); SODIUM 143 MMOL/L (135-145); TOTAL CARBON DIOXIDE 26.7 MMOL/L (24-32); TOTAL PROTEIN 6.5 G/DL (6.4-8.2); eGFR 34 ML/MIN
[2022-01-10] MEDS: atorvastatin 20mg tablet PO SCH (08:00)
[2022-01-10] MEDS: K and/or MAG REPLACEMENT MC SCH ×2 (08:00→19:49)
[2022-01-10] MEDS: docusate sod 100mg capsule PO SCH ×2 (08:00→19:34)
[2022-01-10] MEDS: heparin, porcine 5000 units/ml vial SQ SCH ×2 (08:00→19:34)
[2022-01-10] MEDS: aspirin 325mg tablet PO SCH (08:30)
[2022-01-10] MEDS: amLODIPine 5mg tablet PO SCH (08:31)
--- NOTE | 2022-01-10 08:31 | NUR ---
Initial: Pt admitted w/ hypertensive emergency, CVA/TIA, and acute renal failure per EMR. Pt is noted to be agitated and refusing care. Currently on 2gNa/MM5 diet per MD/EXHIBITION DESIGNER recs eating mostly 100% of meals though will occasionally refuse some; likely meeting est nutrient needs at this time. LBM 7/8 w/ routine colace ordered though pt is refusing meds. No nutrition intervention implemented at this time. Will continue to monitor. Recs: 1. Liberalize to Regular diet, MM5 per EXHIBITION DESIGNER recs 2. Bowel care per rx 3. Scaled wts Addendum: 01/10/22 at [address] Amended: Links added.
[2022-01-10 08:33] VITALS: BP 172/98
[2022-01-10 10:00] VITALS: BP 155/90
[2022-01-10 15:00] VITALS: BP 134/80
--- NOTE | 2022-01-10 17:52 | NUR ---
Pt refused all attempts at repositioning today. Pt refused all medications except AM blood pressure med. Pt has been pleasantly confused this shift. Pt transfers to commode independently. Will continue to monitor patient
[2022-01-10 18:00] VITALS: BP 145/89
--- NOTE | 2022-01-10 18:30 | NUR ---
Patient in room PCU 3026. I have received report from Lea AGARWAL and had the opportunity to ask questions and assume patient care.
[2022-01-10 22:00] VITALS: BP 151/88
--- NOTE | 2022-01-11 02:58 | NUR ---
pt refused 0200 vital signs. pt refused medications. educted pt. will continue to monitor.
--- NOTE | 2022-01-11 06:15 | NUR ---
Problems reprioritized. Patient report given, questions answered & plan of care reviewed with Juan AGARWAL.
--- NOTE | 2022-01-11 06:15 | NUR ---
Patient in room PCU 3026. I have received report from ANY Guido and had the opportunity to ask questions and assume patient care.
--- NOTE | 2022-01-11 07:11 | NUR ---
Patient refuses to have full vital signs completed only allowing temp to be checked at this time. Will continue to monitor.
[2022-01-11] MEDS: amLODIPine 5mg tablet PO SCH (08:00)
[2022-01-11] MEDS: atorvastatin 20mg tablet PO SCH (08:00)
[2022-01-11] MEDS: docusate sod 100mg capsule PO SCH ×2 (08:00→20:00)
[2022-01-11] MEDS: K and/or MAG REPLACEMENT MC SCH ×2 (08:00→20:00)
[2022-01-11] MEDS: heparin, porcine 5000 units/ml vial SQ SCH ×2 (08:00→20:00)
--- NOTE | 2022-01-11 08:12 | NUR ---
Patient refusing medications this morning. When attempting to educate patient medications patient states, "Meds, Meds. I'm fine. I don't need any of it." Patient eating breakfast. Will conitnue to monitor.
[2022-01-11] MEDS: aspirin 325mg tablet PO SCH (08:30)
--- NOTE | 2022-01-11 10:35 | NUR ---
Patient refusing to keep tele monitor on. Patient repeatedly removes. Patient also refusing care.
--- NOTE | 2022-01-11 10:38 | NUR ---
Dr. Minor aware patient has been refusing to have tele monitor on. Received order to DC.
--- NOTE | 2022-01-11 10:47 | NUR ---
Attempted x2 to do physical assessment however patient refusing. Patient refusing all care and meds at this time. Patient asked for coffee and warm blanket. Both given to patient. Will continue to monitor.
[2022-01-11 11:01] VITALS: BP 155/88
--- NOTE | 2022-01-11 18:20 | NUR ---
Patient in room PCU 3026. I have received report from Juan AGARWAL and had the opportunity to ask questions and assume patient care.
--- NOTE | 2022-01-11 18:20 | NUR ---
Problems reprioritized. Patient report given, questions answered & plan of care reviewed with MAXWELL Zheng.
--- NOTE | 2022-01-12 05:17 | NUR ---
pt refuses all care, medications, and vitals. will not respond when being talked to and will push nurses and techs away.
--- NOTE | 2022-01-12 06:22 | NUR ---
Problems reprioritized. Patient report given, questions answered & plan of care reviewed with santa levy.
[2022-01-12 06:39] LABS: BASOPHILS # (AUTO) 0.1 X10'3 (0-0.2); BASOPHILS % (AUTO) 1.4 % (0-1); EOSINOPHILS # (AUTO) 0.3 X10'3 (0-0.9); EOSINOPHILS % (AUTO) 3.7 % (0-6); HEMATOCRIT 37.9 % (35.0-45.0); HEMOGLOBIN 12.7 g/dl (12.0-16.0); LYMPHOCYTES # (AUTO) 2.4 X10'3 (1.1-4.8); LYMPHOCYTES % (AUTO) 32.8 % (21-51); MEAN CORPUSCULAR HEMOGLOBIN 31.9 PG (27.0-31.0); MEAN CORPUSCULAR HGB CONC 33.7 g/dL (33.0-36.5); MEAN CORPUSCULAR VOLUME 94.8 FL (78-98); MONOCYTES # (AUTO) 0.9 X10'3 (0-0.9); MONOCYTES % (AUTO) 11.9 % (2-12); NEUTROPHILS # (AUTO) 3.6 X10'3 (1.8-7.7); NEUTROPHILS % (AUTO) 50.2 % (42-75); PLATELET COUNT 259 X10'3 (140-440); RED BLOOD COUNT 3.99 X10'6 (4.20-5.60); RED CELL DISTRIBUTION WIDTH 13.6 % (11.5-14.5); WHITE BLOOD COUNT 7.2 X10'3 (4.5-11.0)
[2022-01-12 07:00] LABS: ALANINE AMINOTRANSFERASE 51 U/L (12-78); ALBUMIN 2.7 G/DL (3.4-5.0); ALBUMIN/GLOBULIN RATIO 0.7 (1.1-1.5); ALKALINE PHOSPHATASE 50 IU/L (46-116); ANION GAP 9 (8-16); ASPARTATE AMINO TRANSFERASE 44 U/L (10-37); BILIRUBIN,TOTAL 0.4 MG/DL (0.1-1.0); BLOOD UREA NITROGEN 30 MG/DL (7-18); BUN/CREATININE RATIO 17.3 (6.6-38.0); CALCIUM 8.7 MG/DL (8.5-10.1); CHLORIDE 106 MMOL/L (99-107); CREATININE 1.73 MG/DL (0.40-0.90); GLUCOSE 96 MG/DL (70-104); MAGNESIUM 2.1 MG/DL (1.5-2.4); PHOSPHORUS 3.9 MG/DL (2.3-4.5); POTASSIUM 3.5 MMOL/L (3.5-5.1); SODIUM 142 MMOL/L (135-145); TOTAL CARBON DIOXIDE 26.9 MMOL/L (24-32); TOTAL PROTEIN 6.7 G/DL (6.4-8.2); eGFR 30 ML/MIN
--- NOTE | 2022-01-12 07:07 | NUR ---
Pt. refusing medications at this time.Educated on HTN and the risks of HTN. SHe is aware that we found her to be currently hypertensive. States "It shouldn't be." Shakes her head no when offered her medications. Non-communicative for the most part.
[2022-01-12 07:12] VITALS: BP 177/96
[2022-01-12] MEDS: heparin, porcine 5000 units/ml vial SQ SCH ×2 (08:00→20:00)
[2022-01-12] MEDS: atorvastatin 20mg tablet PO SCH (08:00)
[2022-01-12] MEDS: amLODIPine 5mg tablet PO SCH (08:00)
[2022-01-12] MEDS: docusate sod 100mg capsule PO SCH ×2 (08:00→20:00)
[2022-01-12] MEDS: K and/or MAG REPLACEMENT MC SCH ×2 (08:00→20:00)
[2022-01-12] MEDS: aspirin 325mg tablet PO SCH (08:30)
--- NOTE | 2022-01-12 09:00 | NUR ---
Pt. refused full physical assessment stating "I only let them listen to my lungs once. And that's already been done."
--- NOTE | 2022-01-12 11:00 | NUR ---
Refused VS to be taken however graciously accepted a bed bath.
--- NOTE | 2022-01-12 15:30 | NUR ---
Pt. has apparently refused for VS to be taken again.
--- NOTE | 2022-01-12 18:11 | NUR ---
Gave report to Tari ARREOLA.
--- NOTE | 2022-01-12 18:11 | NUR ---
Patient in room PCU 3026. I have received report from Beverley AGARWAL and had the opportunity to ask questions and assume patient care.
--- NOTE | 2022-01-13 01:00 | NUR ---
pt crying saying she wants to leave. adv pt we are waiting for discharge orders and a confirmation of either placement facility or family member. pt adv she cant remember the phone numbers of her family
--- NOTE | 2022-01-13 02:47 | NUR ---
Assessment unchanged. pt is restless uncooperative with care. Refuses vital signs,
--- NOTE | 2022-01-13 04:34 | NUR ---
pt refused meds and other care for this shift
--- NOTE | 2022-01-13 06:25 | NUR ---
Problems reprioritized. Patient report given, questions answered & plan of care reviewed with krysten levy.
--- NOTE | 2022-01-13 06:52 | NUR ---
Patient in room PCU 3026. I have received report from Tari AGARWAL and had the opportunity to ask questions and assume patient care.
[2022-01-13] MEDS: heparin, porcine 5000 units/ml vial SQ SCH ×2 (08:00→20:00)
[2022-01-13] MEDS: amLODIPine 5mg tablet PO SCH (08:00)
[2022-01-13] MEDS: docusate sod 100mg capsule PO SCH ×2 (08:00→20:00)
[2022-01-13] MEDS: atorvastatin 20mg tablet PO SCH (08:00)
[2022-01-13] MEDS: K and/or MAG REPLACEMENT MC SCH ×2 (08:00→20:00)
[2022-01-13] MEDS: aspirin 325mg tablet PO SCH (08:30)
--- NOTE | 2022-01-13 16:21 | NUR ---
Refused meds, and care but agreeable to having blood taken
[2022-01-13 16:34] LABS: ALANINE AMINOTRANSFERASE 39 U/L (12-78); ALBUMIN 2.5 G/DL (3.4-5.0); ALBUMIN/GLOBULIN RATIO 0.7 (1.1-1.5); ALKALINE PHOSPHATASE 48 IU/L (46-116); ANION GAP 4 (8-16); ASPARTATE AMINO TRANSFERASE 37 U/L (10-37); BILIRUBIN,TOTAL 0.2 MG/DL (0.1-1.0); BLOOD UREA NITROGEN 34 MG/DL (7-18); BUN/CREATININE RATIO 21.8 (6.6-38.0); CALCIUM 8.7 MG/DL (8.5-10.1); CHLORIDE 105 MMOL/L (99-107); CREATININE 1.56 MG/DL (0.40-0.90); GLUCOSE 136 MG/DL (70-104); PHOSPHORUS 3.7 MG/DL (2.3-4.5); POTASSIUM 3.8 MMOL/L (3.5-5.1); SODIUM 137 MMOL/L (135-145); TOTAL CARBON DIOXIDE 27.6 MMOL/L (24-32); TOTAL PROTEIN 6.2 G/DL (6.4-8.2); eGFR 33 ML/MIN
--- NOTE | 2022-01-13 18:35 | NUR ---
Patient in room PCU 3026. I have received report from nicole levy and had the opportunity to ask questions and assume patient care.
[2022-01-13 18:41] LABS: BASOPHILS # (AUTO) 0.1 X10'3 (0-0.2); EOSINOPHILS # (AUTO) 0.3 X10'3 (0-0.9); EOSINOPHILS % (AUTO) 3.8 % (0-6); HEMATOCRIT 35.7 % (35.0-45.0); HEMOGLOBIN 12.3 g/dl (12.0-16.0); LYMPHOCYTES % (AUTO) 29.3 % (21-51); MEAN CORPUSCULAR HGB CONC 34.4 g/dL (33.0-36.5); MEAN PLATELET VOLUME 10.5 FL (7.4-10.4); MONOCYTES # (AUTO) 0.8 X10'3 (0-0.9); MONOCYTES % (AUTO) 10.9 % (2-12); NEUTROPHILS # (AUTO) 3.8 X10'3 (1.8-7.7); PLATELET COUNT 246 X10'3 (140-440); RED BLOOD COUNT 3.72 X10'6 (4.20-5.60); RED CELL DISTRIBUTION WIDTH 13.6 % (11.5-14.5); WHITE BLOOD COUNT 6.9 X10'3 (4.5-11.0)
--- NOTE | 2022-01-13 18:56 | NUR ---
Problems reprioritized. Patient report given, questions answered & plan of care reviewed with Tari AGARWAL.
--- NOTE | 2022-01-14 07:01 | NUR ---
Patient in room PCU 3026. I have received report from JOHNNY AGARWAL and had the opportunity to ask questions and assume patient care.
[2022-01-14] MEDS: atorvastatin 20mg tablet PO SCH (08:00)
[2022-01-14] MEDS: amLODIPine 5mg tablet PO SCH (08:00)
[2022-01-14] MEDS: K and/or MAG REPLACEMENT MC SCH ×2 (08:00→20:00)
[2022-01-14] MEDS: heparin, porcine 5000 units/ml vial SQ SCH ×2 (08:00→20:00)
[2022-01-14] MEDS: docusate sod 100mg capsule PO SCH ×2 (08:00→20:00)
--- NOTE | 2022-01-14 08:09 | NUR ---
OFFERED PATIENT HER AM MEDS SCHEDULED. SHE STATED " I ALREADY TOOK THEM". I ASSURED HER THAT I HAD NOT ADMINISTERED ANY MEDICATIONS TO HER. SHE REFUSED TO AGREE TO TAKE ANY MEDICATIONS THIS MORNING. WILL CONTINUE TO ENCOURAGE THAT SHE FOLLOW PLAN OF CARE.
[2022-01-14] MEDS: aspirin 325mg tablet PO SCH (08:30)
--- NOTE | 2022-01-14 08:44 | NUR ---
PHYSICAL ASSESSMENT PATIENT ALLOWS. DOCUMENTED IN ASSESSMENT WHAT I WAS ABLE TO DO.
[2022-01-14 16:15] VITALS: BP 158/79
--- NOTE | 2022-01-14 18:21 | NUR ---
Problems reprioritized. Patient report given, questions answered & plan of care reviewed with JOHNNY ARREOLA.
--- NOTE | 2022-01-15 01:51 | NUR ---
pt refuses treatment
--- NOTE | 2022-01-15 03:00 | NUR ---
PATIENT REFUSES CARE, ASSESSMENTS, AND TREATMENTS.
--- NOTE | 2022-01-15 07:00 | NUR ---
Pt. refused for VS to be taken.
[2022-01-15] MEDS: K and/or MAG REPLACEMENT MC SCH ×2 (08:00→20:00)
[2022-01-15] MEDS: amLODIPine 5mg tablet PO SCH (08:00)
--- NOTE | 2022-01-15 08:00 | NUR ---
Pt refused full physical assessment.
[2022-01-15] MEDS: aspirin 325mg tablet PO SCH (10:42)
[2022-01-15] MEDS: docusate sod 100mg capsule PO SCH (10:43)
[2022-01-15] MEDS: atorvastatin 20mg tablet PO SCH (10:43)
[2022-01-15] MEDS: heparin, porcine 5000 units/ml vial SQ SCH ×2 (10:44→20:00)
--- NOTE | 2022-01-15 11:00 | NUR ---
Pt. refused for VS to be taken.
[2022-01-15] MEDS: normal saline 1000ml 1,000 ML IV SCH ×2 (11:35→21:35)
[2022-01-15 12:07] LABS: BASOPHILS # (AUTO) 0.1 X10'3 (0-0.2); BASOPHILS % (AUTO) 1.5 % (0-1); EOSINOPHILS # (AUTO) 0.3 X10'3 (0-0.9); EOSINOPHILS % (AUTO) 3.6 % (0-6); HEMATOCRIT 36.9 % (35.0-45.0); HEMOGLOBIN 12.6 g/dl (12.0-16.0); LYMPHOCYTES # (AUTO) 2.1 X10'3 (1.1-4.8); LYMPHOCYTES % (AUTO) 29.5 % (21-51); MEAN CORPUSCULAR HEMOGLOBIN 32.4 PG (27.0-31.0); MEAN CORPUSCULAR HGB CONC 34.2 g/dL (33.0-36.5); MEAN CORPUSCULAR VOLUME 94.8 FL (78-98); MONOCYTES # (AUTO) 0.8 X10'3 (0-0.9); MONOCYTES % (AUTO) 11.2 % (2-12); NEUTROPHILS # (AUTO) 3.9 X10'3 (1.8-7.7); NEUTROPHILS % (AUTO) 54.2 % (42-75); PLATELET COUNT 272 X10'3 (140-440); RED CELL DISTRIBUTION WIDTH 13.5 % (11.5-14.5); WHITE BLOOD COUNT 7.2 X10'3 (4.5-11.0)
[2022-01-15 12:24] LABS: ALANINE AMINOTRANSFERASE 45 U/L (12-78); ALBUMIN 2.6 G/DL (3.4-5.0); ALBUMIN/GLOBULIN RATIO 0.7 (1.1-1.5); ALKALINE PHOSPHATASE 52 IU/L (46-116); ANION GAP 5 (8-16); ASPARTATE AMINO TRANSFERASE 37 U/L (10-37); BILIRUBIN,TOTAL 0.3 MG/DL (0.1-1.0); BLOOD UREA NITROGEN 27 MG/DL (7-18); BUN/CREATININE RATIO 19.4 (6.6-38.0); CALCIUM 8.6 MG/DL (8.5-10.1); CHLORIDE 106 MMOL/L (99-107); CREATININE 1.39 MG/DL (0.40-0.90); GLUCOSE 112 MG/DL (70-104); POTASSIUM 3.7 MMOL/L (3.5-5.1); SODIUM 140 MMOL/L (135-145); TOTAL CARBON DIOXIDE 29.5 MMOL/L (24-32); TOTAL PROTEIN 6.4 G/DL (6.4-8.2); eGFR 38 ML/MIN
[2022-01-15 15:00] VITALS: BP 150/83
--- NOTE | 2022-01-15 18:35 | NUR ---
Gave report to Keyanna AGARWAL.
--- NOTE | 2022-01-15 21:56 | NUR ---
pt was found by a nurse sitting on the floor in her room next to her bed.According to the nurse, pt said she tried to reach to her bed side commode but couldn't so she sat on the floor.She denies any pain and no visible injury noted. notified.
--- NOTE | 2022-01-15 22:05 | NUR ---
pt refused her HS medications,vital signs and pulled out her iv line.MD notified,ordered to leave the line for now and try again in the morning as she might pull it again.
--- NOTE | 2022-01-16 01:06 | NUR ---
PATIENT WAS FOUND WALKING NEAR THE LOBBY WITH HER WALKER. REFUSED TO COME BACK UPSTAIRS, REFUSED ALL OFFERS OF FOOD AND DRINK AND STATED SHE DID NOT WANT TO GO BACK TO HER BED. REFUSED OFFERS TO CALL FAMILY. NOTIFIED HOUSE SUP AND SECURITY. THEY EVENTUALLY BROUGHT THE PATIENT BACK TO THE UNIT IN A WHEELCHAIR AND TOOK THE WALKER AWAY. PT BACK TO BED FOR A SHORT TIME. NOW UP AND WALKING HER ROOM. SITTER OUTSIDE ROOM TO REDIRECT AND MONITOR.
--- NOTE | 2022-01-16 02:32 | NUR ---
NOTIFIED FOR SITTER ORDER. PT IS STILL CONFUSED AND UNSAFE TO LEAVE AMA AT THIS TIME
[2022-01-16] MEDS: normal saline 1000ml 1,000 ML IV SCH ×2 (06:52→15:34)
[2022-01-16] MEDS: atorvastatin 20mg tablet PO SCH (07:32)
[2022-01-16] MEDS: heparin, porcine 5000 units/ml vial SQ SCH ×2 (07:32→19:39)
[2022-01-16] MEDS: aspirin 325mg tablet PO SCH (07:32)
[2022-01-16] MEDS: K and/or MAG REPLACEMENT MC SCH ×2 (07:32→19:40)
[2022-01-16] MEDS: amLODIPine 5mg tablet PO SCH (07:32)
--- NOTE | 2022-01-16 09:20 | NUR ---
PATIENT REFUSED 0600 VITAL SIGNS, REFUSED TO ALLOW ME TO DO A FULL HEAD TO TOE ASSESSMENT AND REFUSED ALL OF HER SCHEDULED MEDICATIONS. Addendum: 01/16/22 at 0921 by Suzanna Russo RN Amended: Links added.
--- NOTE | 2022-01-16 09:42 | NUR ---
Reassessment: Pt continues on MM5/2gNa diet per DIRECTOR OF MATERIALS/MD recs w/ mostly 75-100% intake of meals meeting needs at this time. Pt continues to be A&O x 2 and confused, refusing most care and meds per documentation. LBM 01/11. No change to recommendations, will continue to monitor. Recs: 1. Liberalize to Regular diet, MM5 per DIRECTOR OF MATERIALS recs 2. Bowel care per rx 3. Scaled wts Addendum: 01/16/22 at [address] Amended: Links added.
--- NOTE | 2022-01-16 11:33 | NUR ---
Refused 1100 vitals. Addendum: 01/16/22 at 1134 by Suzanna Russo RN Amended: Links added.
[2022-01-16 15:21] VITALS: BP 158/99
[2022-01-16 18:00] VITALS: BP 162/104
--- NOTE | 2022-01-16 18:23 | NUR ---
Problems reprioritized. Patient report given, questions answered & plan of care reviewed with ANY Sears.
[2022-01-16 22:00] VITALS: BP 177/96
[2022-01-17 02:00] VITALS: BP 186/107
[2022-01-17] MEDS: normal saline 1000ml 1,000 ML IV SCH ×2 (07:07→13:35)
[2022-01-17] MEDS: K and/or MAG REPLACEMENT MC SCH (07:22)
[2022-01-17] MEDS: amLODIPine 5mg tablet PO SCH (07:22)
[2022-01-17] MEDS: heparin, porcine 5000 units/ml vial SQ SCH (07:22)
[2022-01-17] MEDS: atorvastatin 20mg tablet PO SCH (07:22)
[2022-01-17] MEDS: aspirin 325mg tablet PO SCH (07:22)
--- NOTE | 2022-01-17 09:45 | NUR ---
PATIENT REFUSED 0600 VITAL SIGNS, REFUSED TO ALLOW ME TO DO A FULL HEAD TO TOE ASSESSMENT AND REFUSED ALL OF HER SCHEDULED MEDICATIONS. Addendum: 01/17/22 at 0945 by Suzanna Russo RN Amended: Links added.
[2022-01-17] MEDS ORDERED: LISI10TA27 PO (09:48)
[2022-01-17] MEDS ORDERED: ATOR20TA66 PO (09:48)
[2022-01-17] MEDS ORDERED: ASPI-1 PO (09:48)
[2022-01-17] MEDS ORDERED: NOR5T PO (09:48)
--- NOTE | 2022-01-17 10:00 | NUR ---
Discharge ready. Awaiting FWW delivery and clothes for the patient.
[2022-01-17 11:37] VITALS: BP 110/71
--- NOTE | 2022-01-17 14:46 | NUR ---
Patient stable and appropriate for discharge to her daughters house on [address]. All belongings taken from the room. All discharge instructions and education given and reviewed with patient, all questions answered. Patient was ordered a front wheel walker to discharge home with, however she refused to wait for the walker to be delivered and said that her daughter will bring her back here tomorrow to mixing picker tender the FWW. New medications have been e-scripted to preferred pharmacy, patient said that she will mixing picker tender her prescriptions from the pharmacy and take the medications as ordered. All discharge instructions and education given and reviewed with patient, all questions answered.
== END 2022-01-17 14:52 | disposition home or self-care (01) | DRG 64 ==
LOC: ER 00:35 → ED HOLD 05:50 → PCU 3S 16:51
PROVIDERS: ADMIT Family Medicine; ATTEND Family Medicine
DX: I63.81 Other cerebral infarction due to occlusion or stenosis of small artery (principal); G93.41 Metabolic encephalopathy; I67.4 Hypertensive encephalopathy; F33.0 Major depressive disorder, recurrent, mild; I16.1 Hypertensive emergency; N17.9 Acute kidney failure, unspecified; N39.0 Urinary tract infection, site not specified; I13.0 Hypertensive heart and chronic kidney disease with heart failure and stage 1 through stage 4 chronic kidney disease, or unspecified chronic kidney disease; E87.6 Hypokalemia; E78.00 Pure hypercholesterolemia, unspecified; F03.90 Unspecified dementia, unspecified severity, without behavioral disturbance, psychotic disturbance, mood disturbance, and anxiety; F17.210 Nicotine dependence, cigarettes, uncomplicated; F41.9 Anxiety disorder, unspecified; M19.90 Unspecified osteoarthritis, unspecified site; Z20.822 Contact with and (suspected) exposure to COVID-19; G89.4 Chronic pain syndrome; H54.61 Unqualified visual loss, right eye, normal vision left eye; F12.90 Cannabis use, unspecified, uncomplicated; W18.39XA Other fall on same level, initial encounter; I25.10 Atherosclerotic heart disease of native coronary artery without angina pectoris; I50.9 Heart failure, unspecified; K21.9 Gastro-esophageal reflux disease without esophagitis; N18.9 Chronic kidney disease, unspecified; Z59.00 Homelessness unspecified; Z79.891 Long term (current) use of opiate analgesic; Z86.73 Personal history of transient ischemic attack (TIA), and cerebral infarction without residual deficits; Z87.440 Personal history of urinary (tract) infections; Z91.19 Patient's noncompliance with other medical treatment and regimen; Z88.5 Allergy status to narcotic agent; Z88.8 Allergy status to other drugs, medicaments and biological substances; Y93.89 Activity, other specified; Y92.89 Other specified places as the place of occurrence of the external cause; Y99.8 Other external cause status; Z79.899 Other long term (current) drug therapy; Z79.82 Long term (current) use of aspirin
CPT/HCPCS: 36415; 70450; 70544; 70547; 70553; 71046; 80053; 80061; 80305; 80320; 81001; 83036; 83690; 83735; 83880; 84100; 84132; 84443; 84484; 85025; 85610; 85730; 87081; 92508; 92616; 93005; 93306; 96365; 97116; 97161; 97530; 99285; G0378; J1644; J3360; J3480; J3490; J7030